=== PATIENT | male | born 1960 ===

== ENCOUNTER 2025-04-26 06:19 | Day surgery (SDC) | payer OTHER ==
[~2025-04-26 06:19] MED LIST: COZAAR25 MG
[2025-04-26] MEDS ORDERED: fentaNYL CITRATE 50 MCG/ML AMPUL IV PUSH ONE (11:15)
[2025-04-26] MEDS ORDERED: DIPHENHYDRAMINE HCL 50 MG/ML VIAL 1ML IV ONE (11:15)
[2025-04-26] MEDS ORDERED: MIDAZOLAM HCL 2 MG/2 ML VIAL IV ONE (11:15)
[2025-04-26] MEDS ORDERED: ONDANSETRON HCL 2 MG/ML VIAL IV ONE (11:15)
== END 2025-04-26 12:50 | disposition home or self-care (01) ==
LOC: AMB-ENDOS 06:19
PROVIDERS: ATTEND Colon & Rectal Surgery
DX: D12.4 Benign neoplasm of descending colon (principal); K63.5 Polyp of colon; K57.30 Diverticulosis of large intestine without perforation or abscess without bleeding; Z12.11 Encounter for screening for malignant neoplasm of colon; R19.4 Change in bowel habit; Z91.018 Allergy to other foods